=== PATIENT | male | born 1935 | race Caucasian/White ===

== ENCOUNTER 2023-08-14 14:32 | Inpatient (IN) | payer OTHER, SELFPAY ==
[2023-08-14] VITALS (8 sets, daily range): BP systolic 121–149; BP diastolic 51–66; BMI 38.9; BMI 37.4
--- NOTE | 2023-08-14 11:44 | ED.GENMED ---
History of Present Illness
General
Chief Complaint: Weakness
Source: patient
Exam Limitations: none
Time Seen by Provider: 08/14/23 11:40
History of Present Illness
History of Present Illness:
See MDM
Past History
Past History
ED Past Medical History: HTN and Other (Lymphadema)
ED Past Surgical History: None
Social History
Tobacco: Non-smoker
Alcohol: None
Phy Exam
Physical Exam
Physical Exam:
See MDM
Course
Orders/Labs/Results
Orders:
Orders
08/14/23 11:44
0.9% Sodium Chloride 1000 ml [Nss] 1,000 ml IV BOLUS
08/14/23 12:01
Complete Blood Count/With Diff Urgent
Comprehensive Metabolic Panel Urgent
08/14/23 13:23
Electrocardiogram (*1) Urgent
Reason for Study: QTc Monitoring
EKG- Treatment ONCE
Abnormal Lab Results
08/14/23
12:01
RBC 3.83 L 10^6/uL
(4.70-6.10)
Hgb 11.5 L g/dL
(13.0-18.0)
Hct 36.2 L %
(39.0-52.0)
MCV 94.5 H fL
(80.0-94.0)
MCHC 31.8 L g/dL
(33.0-37.0)
MPV 10.5 H fL
(7.4-10.4)
Absolute Monos (auto) 0.8 H 10^3/uL
(0.1-0.6)
Monocytes % 11.0 H %
(1.7-9.3)
Sodium 132 L mmol/L
(135-145)
Potassium 5.3 H mmol/L
(3.5-5.1)
Carbon Dioxide 17 L mmol/L
(22-30)
BUN 108 H* mg/dl
(9-20)
Creatinine 5.4 H* mg/dL
(0.7-1.3)
Glucose 104 H mg/dl
(70-99)
Total Protein 6.2 L g/dl
(6.3-8.2)
08/14/23 12:01
08/14/23 12:01
Vital Signs
Initial and Last Documented VS:
Initial Vital Signs
Temp Pulse Resp BP Pulse Ox
97.7 F 74 18 132/59 94
08/14/23 11:43 08/14/23 11:43 08/14/23 11:43 08/14/23 11:43 08/14/23 11:43
Last Documented Vital Signs
Temp Pulse Resp BP Pulse Ox
97.7 F 74 18 132/59 94
08/14/23 11:43 08/14/23 11:43 08/14/23 11:43 08/14/23 11:43 08/14/23 11:43
MDM/Problems Addressed
Differential Diagnosis Includes:
HPI and MDM Narrative:
87-year-old male presenting with generalized weakness. Patient has been feeling weak over the past several weeks. He went to an outside hospital and had a negative workup. He was ultimately sent to rehab. Patient left rehab earlier today and was
walking to his car and his legs gave out again. Patient now unsure if he can go home. On exam, he has dry mucous membranes. He states he is getting over a GI bug that he got in the facility.
Will give IV fluids and obtain basic blood work. No trauma noted on exam. He is generally weak with no focality. If blood work negative, will have physical therapy evaluate
Physical exam
General: weak and tried
HEENT: protecting airway. Dry mucous membranes
Neck: supple
CV: No evidence of cyanosis
Resp: No accessory muscle use
Abd: Non-distended
Extremities: Bilateral leg lymphedema. Muscle strength appears to be intact to both legs and arms
Neuro: alert
Psych: Normal affect
Skin: Intact
Problems Addressed including Acute and Chronic Conditions affecting care:
1. Generalized weakness
Acuity: acute
Prognosis: stable
Details: Will obtain basic blood work
2. Hypovolemia
Acuity: acute
Prognosis: stable
Details: Will give IV fluids
Updates
Patient found to have an elevated BUN and creatinine. At this point, daughter is at bedside indicating his history of chronic kidney disease but does not believe the numbers are usually this high. Will admit based on his generalized weakness and
acute kidney injury. Patient states he had not made any urine the day prior and is started to make urine out after fluids
Differential Diagnosis (but not limited to): Dehydration, UTI
Testing considered: Urinalysis
Drug therapy (if applicable): OTC meds, please see d/c instruction regarding Rx drugs
Amount and/or Complexity of Data Reviewed
Clinical info obtained from: Patient
External data reviewed: N/A
Labs I independently reviewed (but not limited to): Elevated creatinine and BUN, mildly elevated potassium
Radiology: N/A
Pulse Ox: not hypoxic
EKG independently reviewed: N/A
House Wrecker: N/A
Critical Care: N/A
Risk of Complication:
Social Determinants of health: Good social support
Discussed with other providers: Hospitalist
Escalation of Care includes Admit/Obs: Given his dehydration and an elevated will continue IV fluids and admit
Occasional wrong word or 'sound a like' substitutions may have occurred due to the inherent limitations of voice recognition software. Read the chart carefully and recognize, using context, where substitutions have occurred.
*Critical Care Note
Total Time (30-74mins, 75-104mins- exclusive of procedures): Not Applicable
ED Attending Note
-
Portions of this chart may have been created with voice recognition software.� Occasional wrong word or��sound alike� substitutions may have occurred due to the inherent limitations of voice recognition software.
Discharge Plan
Departure
Patient Disposition: Admit
Date of Disposition: 08/14/23
Time of Disposition: 13:31
Presentation/result/management discussed w/ accepting MD/DO: Hospitalist
Discharge Problem:
Acute dehydration, ORLANDO (acute kidney injury), Acute hyperkalemia
Interventions
Interventions:
*Risk Screen - Suicide Last Done: 08/14/23 11:43
*General Assessment Last Done: 08/14/23 11:43
*Neglect/Abuse Screening Last Done: 08/14/23 11:43
*ED COVID-19 Vaccine History Last Done: 08/14/23 11:43
ED- Cardiac Assessment Last Done: 08/14/23 12:17
ED- Neurological Assessment Last Done: 08/14/23 12:17
ED- Pulmonary Assessment Last Done: 08/14/23 12:17
Discharge Date and Time
Print Language: SURINAMESE
[2023-08-14] MEDS: NSS 1000 IV (12:02)
[2023-08-14 12:16] LABS: % Basophils 0.3 % (0-2); % Eosinophils 2.8 % (0-6); % Immature Granulocytes 0.4 % (0-0.5); % Neutrophils 57.5 % (42.2-75.2); Absolute Eosinophils 0.2 10^3/uL (0-0.7); Absolute Lymphocytes 2.1 10^3/uL (1.2-3.4); Absolute Monocytes 0.8 10^3/uL (0.1-0.6); Absolute Neutrophils 4.3 10^3/uL (1.4-6.5); Hematocrit 36.2 % (39.0-52.0); Hemoglobin 11.5 g/dL (13.0-18.0); Mean Corp Hgb Conc. 31.8 g/dL (33.0-37.0); Mean Corpuscular Volume 94.5 fL (80.0-94.0); Mean Platelet Volume 10.5 fL (7.4-10.4); Nucleated Red Blood Cells % 0 % (-); Platelet Count 216 10^3/uL (130-400); Red Blood Cell Count 3.83 10^6/uL (4.70-6.10); Red Cell Dist. Width 14.5 % (11.5-14.5); White Blood Cell Count 7.4 10^3/uL (4.8-10.8)
[2023-08-14 12:39] LABS: ALT (SGPT) 14 U/L (0-50); AST (SGOT) 17 U/L (17-59); Albumin 3.6 g/dl (3.5-5.0); Alkaline Phosphatase 68 U/L (38-126); Blood Urea Nitrogen 108 mg/dl (9-20); Calcium 8.6 mg/dl (8.4-10.2); Carbon Dioxide 17 mmol/L (22-30); Chloride 101 mmol/L (98-107); Estimated Creatinine Clearance 14 ml/min; Glucose 104 mg/dl (70-99); Potassium 5.3 mmol/L (3.5-5.1); Sodium 132 mmol/L (135-145); Total Bilirubin 0.5 mg/dl (0.2-1.3); Total Protein 6.2 g/dl (6.3-8.2); eGFR 9.69
--- NOTE | 2023-08-14 14:25 | HPS.HSE ---
Addendum entered and electronically signed by Mohit Johnson MD 08/14/23 15:33:
louise/ohs
-CPAP - daughter jayy bring in machine
Original Note:
Family Physician
-
Family Physician: Amada Chaidez
Chief Complaint
-
Weakness
History of Present Illness
87-year-old male with past medical history hypertension, bph, ?seizures, CKD3 as per daughter, chronic lymphedema now presenting for weakness. Patient has recently been in rehab for weakness, with ankle close a workup at outside hospital. Patient
had recent diarrhea which is improved. Patient was discharged from rehab earlier today, unable to walk to his car and had fell. Feels weakness in his legs. No head strike or trauma. Vitals remarkable for elevated heart rate at 93, normotensive,
RR 19, pulse 67, 92% on room air. No other further data for my records, lab noted to have hyponatremia, sodium 132, potassium 5.3, bicarb 17, BUN 108, creatinine 5.4.
Medical History
Past Medical History
Past Medical History: Reports HTN
Past Surgical History: Reports None
Social History
Alcohol: None
Drug: None
Family History
Family History: Not pertinent
Allergies / Home Medications
Allergies reflects when Allergies were last updated in [employer].
Home Medications with original date entered in [employer]
Allergy/Medication List:
Allergies
Allergy/AdvReac Type Severity Reaction Status Date / Time
No Known Allergies Allergy Verified 08/14/23 11:41
Home Medications
acetaminophen 325 mg tablet (Tylenol) 650 mg PO Q4HPRN PRN mild pain 08/14/23
carvedilol 6.25 mg tablet (Coreg) 6.25 mg PO BID 08/14/23
dorzolamide 22.3 mg-timolol 6.8 mg/mL eye drops 1 drp LEFT EYE BID 08/14/23
escitalopram oxalate 10 mg tablet (Lexapro) 10 mg PO DAILY 08/14/23
eszopiclone 2 mg tablet (Lunesta) 2 mg PO HS 08/14/23
finasteride 5 mg tablet 5 mg PO DAILY 08/14/23
levetiracetam 250 mg tablet (Keppra) 250 mg PO BID 08/14/23
lisinopril 20 mg-hydrochlorothiazide 12.5 mg tablet 1 tab PO DAILY 08/14/23
pantoprazole 40 mg tablet,delayed release (Protonix) 40 mg PO DAILY 08/14/23
terazosin 10 mg capsule 10 mg PO DAILY 08/14/23
Review of Systems
-
History Source: Patient
A 12 point ROS was completed and negative except as noted: Yes
Physical Exam
Vital Signs
Vital Signs
Temp Pulse Resp BP Pulse Ox
97.7 F 67 19 144/55 93
08/14/23 11:43 08/14/23 13:30 08/14/23 13:30 08/14/23 13:00 08/14/23 13:30
Physical Exam
General: Well Developed, Well Nourished and No Apparent Distress
HEENT: NormoCephalic
Respiratory: Clear
Cardiac: S1/S2
GI: Soft and Non Tender
Musculoskeletal: No Clubbing
Skin: Warm and Other (Lower extremity edema, history of chronic bilateral leg lymphedema)
Neuro: Awake, Alert, Oriented and AO x 3
Hematologic/Lymphatic: Other (History of bilateral leg lymphedema)
Psych: Calm
Laboratory Results
-
08/14/23 12:01
08/14/23 12:01
Laboratory Results
Total Bilirubin 0.5 mg/dl (0.2-1.3) 08/14/23 12:01
AST 17 U/L (17-59) 08/14/23 12:01
ALT 14 U/L (0-50) 08/14/23 12:01
Alkaline Phosphatase 68 U/L (38-126) 08/14/23 12:01
Impression/Plan
-
IMPRESSION:
87-year-old male with past medical history hypertension, lymphedema now presenting for weakness. Found to have ORLANDO after diarrheal illness.
PLAN:
#ORLANDO on ?CKD3
#Anion gap metabolic acidosis
� Suspect due to volume loss in setting of recent diarrheal illness v obstructive uropathy in setting of bph and lack of urination
� Continue IV fluids�monitor respiratory status
- continue to monitor BMP
� Follow-up UA to rule out UTI
� Echo
-Renal and Bladder US; PVR
-Anticipate placing yang
�Hold nephrotoxic agents
#Hyperkalemia
� Secondary to ORLANDO
� Continue to monitor with resuscitation
� BMP this evening
#Hyponatremia
� Most likely secondary to volume loss in setting of diarrhea
� Continue to monitor with IV resuscitation
#Hypertension
� Continue Coreg
� Hold on lisinopril/hydrochlorothiazide
#BPH
� Continue medications
#Hx of Seizures
� Continue Keppra
#DVT ppx
-HSQ
--- NOTE | 2023-08-14 17:04 | CM ---
[facility] per JUNI Pierceapplication development liaison.
[2023-08-14] MEDS: HEPARIN 5000 UNITS SC ×2 (17:21→23:39)
[2023-08-14] MEDS: LR 1000 IV ×2 (17:22→21:09)
[2023-08-14 19:16] LABS: Blood Urea Nitrogen 104 mg/dl (9-20); Calcium 8.5 mg/dl (8.4-10.2); Carbon Dioxide 16 mmol/L (22-30); Chloride 102 mmol/L (98-107); Estimated Creatinine Clearance 15 ml/min; Glucose 100 mg/dl (70-99); Potassium 4.9 mmol/L (3.5-5.1); Sodium 134 mmol/L (135-145); eGFR 10.62
[2023-08-14] MEDS: TRUSOPT 2% OPHTHALMIC SOLUTION 1 DROP LEFT EYE (22:02)
[2023-08-14] MEDS: COREG 6.25 MG PO (22:06)
[2023-08-14] MEDS: KEPPRA 250 MG PO (22:07)
[2023-08-15] VITALS (9 sets, daily range): BP systolic 115–162; BP diastolic 55–79; PULSE 77–102; O2SAT 83–94
[2023-08-15 06:53] LABS: ALT (SGPT) 13 U/L (0-50); AST (SGOT) 16 U/L (17-59); Albumin 3.3 g/dl (3.5-5.0); Alkaline Phosphatase 67 U/L (38-126); Blood Urea Nitrogen 98 mg/dl (9-20); Calcium 8.6 mg/dl (8.4-10.2); Carbon Dioxide 17 mmol/L (22-30); Chloride 105 mmol/L (98-107); Estimated Creatinine Clearance 19 ml/min; Glucose 92 mg/dl (70-99); Magnesium 2.2 mg/dl (1.6-2.3); Potassium 4.8 mmol/L (3.5-5.1); Sodium 137 mmol/L (135-145); Total Bilirubin 0.5 mg/dl (0.2-1.3); Total Protein 5.9 g/dl (6.3-8.2); eGFR 13.89
[2023-08-15 06:55] LABS: Hematocrit 33.5 % (39.0-52.0); Hemoglobin 10.9 g/dL (13.0-18.0); Mean Corp Hgb Conc. 32.5 g/dL (33.0-37.0); Mean Corpuscular Hgb 29.5 pg (27.0-31.0); Mean Corpuscular Volume 90.5 fL (80.0-94.0); Mean Platelet Volume 10.2 fL (7.4-10.4); Platelet Count 210 10^3/uL (130-400); Red Cell Dist. Width 14.2 % (11.5-14.5); White Blood Cell Count 7.2 10^3/uL (4.8-10.8)
[2023-08-15 07:41] LABS: Urine Albumin Negative (Neg - Trace); Urine Bilirubin Negative (Negative); Urine Character Clear (Clear); Urine Color Yellow; Urine Glucose Negative (Negative); Urine Ketone Negative (Negative); Urine Leukocyte 1+ (Negative); Urine Nitrite Negative (Negative); Urine Occult Blood 4+ (Negative); Urine Specific Gravity 1.015 (<1.030); Urine Urobilinogen Negative (Neg - 1+)
[2023-08-15 08:29] LABS: Urine Bacteria Few (Negative); Urine Red Blood Cell 16-20 /HPF (0-2); Urine Urothelial Cell 0-2 /LPF (FEW)
[2023-08-15] MEDS: PROSCAR 5 MG PO (09:31)
[2023-08-15] MEDS: COREG 6.25 MG PO ×2 (09:31→21:03)
[2023-08-15] MEDS: HYTRIN 10 MG PO (09:31)
[2023-08-15] MEDS: PROTONIX 40 MG PO (09:31)
[2023-08-15] MEDS: HEPARIN 5000 UNITS SC ×3 (09:32→23:04)
[2023-08-15] MEDS: LEXAPRO 10 MG PO (09:32)
[2023-08-15] MEDS: KEPPRA 250 MG PO ×2 (09:32→21:04)
[2023-08-15] MEDS: TRUSOPT 2% OPHTHALMIC SOLUTION 1 DROP LEFT EYE ×2 (09:33→21:03)
[2023-08-15] MEDS: LR 1000 IV (09:44)
--- NOTE | 2023-08-15 11:57 | W.PN.HOSP.TC ---
Addendum entered and electronically signed by Mohit Johnson MD 08/15/23 14:54:
Hypoxic event with fluids. Stop fluids. Echo recently done, EF 71% with normal wall thickness and no wall motion abnormalities. IVC is dilated and does not collapse. I suspect this may be secondary to fluids versus aspiration. Possibly
aspirated, speech eval. Empiric antibiotics for now. Possibility of PE and difficult to assess with ORLANDO. Will order lower extremity Dopplers. If positive, start anticoagulation. Otherwise high prob fluid overload/Aspiration. Will obtain trops
Original Note:
Today's Communication/Plan
-
cont ivf
plan for tov tomorrow
monitor bmp
Assessment / Plan
Assessment / Plan
Physical Exam
General: Well Developed, Well Nourished and No Apparent Distress
HEENT: NormoCephalic
Respiratory: Clear
Cardiac: S1/S2
GI: Soft and Non Tender
Musculoskeletal: No Clubbing
Skin: Warm and Other (Lower extremity edema, history of chronic bilateral leg lymphedema)
Neuro: Awake, Alert, Oriented and AO x 3
Hematologic/Lymphatic: Other (History of bilateral leg lymphedema)
Psych: Calm
IMPRESSION:
87-year-old male with past medical history hypertension, lymphedema now presenting for weakness. Found to have ORLANDO after diarrheal illness.
PLAN:
#ORLANDO on ?CKD3
#Anion gap metabolic acidosis
� Suspect due to volume loss in setting of recent diarrheal illness
-No evidence of hydro/obstruction on renal us
� Continue IV fluids�monitor respiratory status
- continue to monitor BMP; Scr improving
� Follow-up UA to rule out UTI - - equivocal
� Echo
-TOV tomorrow
�Hold nephrotoxic agents
#Asymptomatic Bacteruria
#Hyperkalemia
� Secondary to ORLANDO
� Continue to monitor with resuscitation
�improving
#Hyponatremia
� Most likely secondary to volume loss in setting of diarrhea
� Continue to monitor with IV resuscitation
-improving
#Hypertension
� Continue Coreg
� Hold on lisinopril/hydrochlorothiazide
#BPH
� Continue medications
#Hx of Seizures
� Continue Keppra
#DVT ppx
-HSQ
Anticipated Discharge: 24 - 48 hours
Subjective/Interval History
-
Date of Service: August 15, 2023
sitting in chair, eating. Scr coming down
Objective Data
-
Labs:
Laboratory Results
08/15/23 08/15/23
06:23 06:24
WBC 7.2
Hgb 10.9 L
Hct 33.5 L
Plt Count 210
Sodium 137
Potassium 4.8
Chloride 105
Carbon Dioxide 17 L
BUN 98 H
Creatinine 4.0 H
Glucose 92
Calcium 8.6
Total Bilirubin 0.5
AST 16 L
ALT 13
Alkaline Phosphatase 67
Vital Signs:
Vital Signs
Temp Pulse Resp BP Pulse Ox
97.7 F 82 16 115/55 92
08/15/23 11:14 08/15/23 11:14 08/15/23 11:14 08/15/23 11:14 08/15/23 11:14
I&O
08/14/23 08/15/23 08/16/23
06:59 06:59 06:59
Intake Total 1700 / 1700
Output Total 1425 / 1425
Balance 275 / 275
Review of Systems
-
History Source: Patient
All other systems: Not reviewed unless documented
Data Reviewed
-
Ultrasound: Image personally visualized and interpreted and Report Reviewed by me
Labs: Labs Reviewed by me
--- NOTE | 2023-08-15 12:46 | CM ---
Addendum entered by EVER Berrios 08/15/23 15:20:
Sent referrals to: [facility], [facility], [facility], [facility], [facility], [facility], [facility], [facility], [facility], [facility], [facility], and [facility]. Will await determinations.
Original Note:
Reviewed chart, met with patient's daughter who was at bedside to obtain information for assessment. Patient was at [facility] and fell on his way home after he was discharged. He was supposed to return home with [facility] however came to acute
care s/p fall. Patient lives with his daughter on the first floor of a two story home with one step to enter.
Patient has a w/c. He uses a walker however since the FL he has been weak and unable to ambulate long distances.
Patient needs assistance with bathing, dressing, and all other ADLs. Patient's daughter stated that he was not like this until after the hospitalization and subsequent rehab stay. She does all the data analyst, cooks, cleans and does laundry and
admitted that assisting him with ADLs is very difficult.
Patient's PCP is Amada Chaidez MD and he uses [facility] for all of his medications.
Patient's daughter realizes that the indication on behalf of PT is for patient to go back to rehab. She is agreeable as long as it's not [facility]. Patient and his daughter live in [place] and were agreeable to referrals being sent to
facilities either in [place] or in [place]. Will make referrals to local facilities.
Plan: Case management will continue to follow and assist with discharge planning. SNF, will make referrals.
[2023-08-15] MEDS: DUONEB 3 ML INH ×2 (14:18→19:30)
[2023-08-15] MEDS: ZITHROMAX 500 MG PO (15:14)
[2023-08-15] MEDS: ROCEPHIN 1000 MG IV (15:14)
[2023-08-15 15:15] LABS: Hematocrit 36.2 % (39.0-52.0); Hemoglobin 11.6 g/dL (13.0-18.0); Mean Corpuscular Hgb 29.5 pg (27.0-31.0); Mean Corpuscular Volume 92.1 fL (80.0-94.0); Mean Platelet Volume 10.1 fL (7.4-10.4); Platelet Count 205 10^3/uL (130-400); Red Blood Cell Count 3.93 10^6/uL (4.70-6.10); Red Cell Dist. Width 14.1 % (11.5-14.5); White Blood Cell Count 6.8 10^3/uL (4.8-10.8)
[2023-08-15] MEDS: STERILE WATER FOR INJECTION 10 ML IV (15:15)
[2023-08-15 15:21] LABS: Troponin I 0.021 ng/ml
[2023-08-15 15:43] LABS: Procalcitonin 0.08 ng/ml (0.0-0.25)
--- NOTE | 2023-08-15 19:40 | PTCARENOTE ---
late entry-pt was working with OT today at 14:10, OT reported to this RN that pt de-satted to 83%. Pt reports he can't get a deep breath. Placed on 4L O2 NC, improved sat to 88, bumped up to 6L, now 90. Duoneb ordered by provider, order to stop
fluids. Pt lung assessment: coarse, wet, crackles. Notified provider who came to floor to assess patient. Portable chest X-ray shows probable pneumonitis. Pt had violently vomited at his group home and likely aspirated. Pt placed on BiPap by
respiratory, satting 96%. At 1730, respiratory switched pt back over to O2 NC 5 L and pt remained at 97%. At change of shift, pt was weaned down to 3L and satting at 95%. Provider aware that pt is much improved and breathing/feeling better. All
information given to oncoming night nurse.
[2023-08-15 22:01] LABS: Troponin I 0.013 ng/ml
[2023-08-16] VITALS (8 sets, daily range): BP systolic 124–171; BP diastolic 67–80; PULSE 64–73; O2SAT 95; BMI 37.2
[2023-08-16 02:06] LABS: Hematocrit 33.4 % (39.0-52.0); Hemoglobin 10.9 g/dL (13.0-18.0); Mean Corp Hgb Conc. 32.6 g/dL (33.0-37.0); Mean Corpuscular Hgb 29.5 pg (27.0-31.0); Mean Corpuscular Volume 90.5 fL (80.0-94.0); Mean Platelet Volume 10.4 fL (7.4-10.4); Platelet Count 165 10^3/uL (130-400); Red Blood Cell Count 3.69 10^6/uL (4.70-6.10); Red Cell Dist. Width 14.2 % (11.5-14.5); White Blood Cell Count 7.4 10^3/uL (4.8-10.8)
[2023-08-16 02:23] LABS: ALT (SGPT) 13 U/L (0-50); AST (SGOT) 19 U/L (17-59); Albumin 3.2 g/dl (3.5-5.0); Alkaline Phosphatase 64 U/L (38-126); Blood Urea Nitrogen 92 mg/dl (9-20); Calcium 8.8 mg/dl (8.4-10.2); Carbon Dioxide 17 mmol/L (22-30); Chloride 109 mmol/L (98-107); Estimated Creatinine Clearance 26 ml/min; Glucose 91 mg/dl (70-99); Potassium 4.7 mmol/L (3.5-5.1); Sodium 138 mmol/L (135-145); Total Bilirubin 0.5 mg/dl (0.2-1.3); Total Protein 5.8 g/dl (6.3-8.2); eGFR 20.43
[2023-08-16 02:31] LABS: Troponin I 0.017 ng/ml
[2023-08-16] MEDS: DUONEB 3 ML INH ×4 (07:14→19:45)
[2023-08-16] MEDS: COREG 6.25 MG PO ×2 (08:02→21:52)
[2023-08-16] MEDS: LEXAPRO 10 MG PO (08:02)
[2023-08-16] MEDS: PROTONIX 40 MG PO (08:02)
[2023-08-16] MEDS: PROSCAR 5 MG PO (08:02)
[2023-08-16] MEDS: HYTRIN 10 MG PO (08:02)
[2023-08-16] MEDS: KEPPRA 250 MG PO ×2 (08:02→21:53)
[2023-08-16] MEDS: TRUSOPT 2% OPHTHALMIC SOLUTION 1 DROP LEFT EYE ×2 (08:03→21:53)
[2023-08-16] MEDS: HEPARIN 5000 UNITS SC ×2 (08:03→15:38)
[2023-08-16] MEDS: DESENEX/MITRAZOL/ZEASORB 1 APPLIC TOPICAL ×2 (08:04→21:53)
--- NOTE | 2023-08-16 10:35 | CM ---
Addendum entered by Amada Sands, OSTEOPATHIC MEDICINE TEACHER 08/16/23 16:04:
Received call from Jordon in admissions at [facility] who stated that he does have a bed for patient. Will review options with patient. She will need an auth.
Addendum entered by Amada Sands [facility] 08/16/23 15:39:
Sent more referrals: [facility] and [facility] will await responses.
Original Note:
Received responses back from Lyssa at who stated that she can accept patient. Received notification through [facility] from [facility] and [facility] stating that they may be willing to accept pending the dates that patient was recently at
[facility] and also received message from admissions at [facility]. Again message stated that facility may be willing to accept pending length of SNF stay at [place] [facility]
Placed a call to [facility] and spoke with Roberto in admissions who stated that patient was at his facility from 08/01-08/13.
Placed a call to [facility] and [facility] Left message for admissions to return call.
Will review potential accepting facilities with patient/family.
Plan: Case management will continue to follow and assist with discharge planning. SNF when stable.
--- NOTE | 2023-08-16 13:53 | W.PN.HOSP.TC ---
Today's Communication/Plan
-
Continue monitor serum creatinine
Wean down O2 as tolerated
VSE
Assessment / Plan
Assessment / Plan
Physical Exam
General: Well Developed, Well Nourished and No Apparent Distress
HEENT: NormoCephalic
Respiratory: Clear
Cardiac: S1/S2
GI: Soft and Non Tender
Musculoskeletal: No Clubbing
Skin: Warm and Other (Lower extremity edema, history of chronic bilateral leg lymphedema)
Neuro: Awake, Alert, Oriented and AO x 3
Hematologic/Lymphatic: Other (History of bilateral leg lymphedema)
Psych: Calm
IMPRESSION:
87-year-old male with past medical history hypertension, lymphedema now presenting for weakness. Found to have ORLANDO after diarrheal illness.
PLAN:
#ORLANDO on ?CKD3
#Anion gap metabolic acidosis
� Suspect due to volume loss in setting of recent diarrheal illness
-No evidence of hydro/obstruction on renal us
� Status post IV fluids, stopped due to acute hypoxic respite failure, volume overload
- continue to monitor BMP; Scr improving
� Follow-up UA to rule out UTI - - equivocal
� Echo�EF 71%, no other acute findings, normal thickness
-TOV today
�Hold nephrotoxic agents
#Asymptomatic Bacteruria
# Acute hypoxic respiratory failure
� I suspect acute pulmonary edema status post fluids
� Hold fluids, improved today with positive pressure support
� Echo EF 71%, normal atrial thickness
�No evidence of pneumonia at this time, discontinue antibiotics
� Speech eval, VSE
#Hyperkalemia
� Secondary to ORLANDO
� Continue to monitor with resuscitation
�improving
#Hyponatremia
� Most likely secondary to volume loss in setting of diarrhea
� Continue to monitor with IV resuscitation
-Resolved
#Hypertension
� Continue Coreg
� Hold on lisinopril/hydrochlorothiazide
#BPH
� Continue medications
#Hx of Seizures
� Continue Keppra
#DVT ppx
-HSQ
Total time spent on today's encounter was 50 minutes which included time spent in counseling the patient/family regarding diagnosis and treatment plan as listed above, goals of care, and symptom management. Case was discussed with nursing staff,
specialists, and care coordinators/case management. All labs and imaging personally reviewed by me. Remainder the time spent in detailed review of previous records, lab data, imaging, and other medical provider documentation.
Anticipated Discharge: 24 - 48 hours
Subjective/Interval History
-
Date of Service: August 16, 2023
Symptoms much improved
Objective Data
-
Labs:
Laboratory Results
08/16/23
02:00
WBC 7.4
Hgb 10.9 L
Hct 33.4 L
Plt Count 165
Sodium 138
Potassium 4.7
Chloride 109 H
Carbon Dioxide 17 L
BUN 92 H
Creatinine 2.9 H
Glucose 91
Calcium 8.8
Total Bilirubin 0.5
AST 19
ALT 13
Alkaline Phosphatase 64
Vital Signs:
Vital Signs
Temp Pulse Resp BP Pulse Ox
98.0 F 74 22 167/80 95
08/16/23 11:00 08/16/23 11:00 08/16/23 11:00 08/16/23 11:00 08/16/23 11:00
I&O
08/15/23 08/16/23 08/17/23
06:59 06:59 06:59
Intake Total 1700 / 1700 50 / 50
Output Total 1425 / 1425 2600 / 2600
Balance 275 / 275 -2550 / -2550
Review of Systems
-
History Source: Patient
All other systems: Not reviewed unless documented
Data Reviewed
-
Ultrasound: Image personally visualized and interpreted and Report Reviewed by me
Labs: Labs Reviewed by me
--- NOTE | 2023-08-16 15:43 | PTOTSP ---
SPEECH THERAPY SWALLOW EVALUATION:
Patient presents with oropharyngeal swallow function grossly WFL at this time; However, patient with CXR concerning for aspiration following hypoxic event yesterday. Patient is at risk for aspiration given precipitating dysphagia risk factors
including weakness/deconditioning and pulmonary status. Unable to rule out dysphagia/aspiration at bedside. Differential etiologies of possible aspiration include during reported vomiting episode 5-6 days ago vs. related to current
deconditioning/weakness vs. post-prandial aspiration secondary to GERD. Recommend Videofluoroscopic Swallowing Study to further assess patient's swallow physiology at this time. Recommend Regular texture diet, thin liquids, medications with thin
liquids until VSE. Aspiration precautions including: upright positioning, small single sips and bites, slow rate of intake. Speech therapy to follow, assess diet tolerance and modify as appropriate, provide further recommendations following VSE, and
provide continued education regarding aspiration risks/precautions. Discussed with patient, daughter, RN, and Dr. Johnson.
RECOMMEND:
1) Regular texture diet, thin liquids
2) Videofluoroscopic Swallowing Study
3) Medications whole with liquid as tolerated
4) Aspiration precautions: Upright positioning, Remain upright 30 minutes after eating/drinking, Small single sips/bites, slow rate of intake, do not eat when short of breath
5) Speech therapy to follow, assess diet tolerance and modify as appropriate, provide further recommendations following VSE, and provide continued education regarding aspiration risks/precautions
--- NOTE | 2023-08-16 16:16 | PTOTSP ---
SPEECH THERAPY VIDEOFLUOROSCOPIC SWALLOWING STUDY:
Patient presents with grossly WFL oral swallow function and mild-moderate pharyngeal dysphagia, likely acutely related to weakness/deconditioning secondary to medical complications over past several weeks. Patient with deep penetration to level of
vocal folds with thin liquid via cup (consecutive sips and single sip thin liquid wash), and trace penetration with Mildly-thick liquid via teaspoon. Patient remains at risk for aspiration with thin liquids given lack of cough in response to airway
invasion, along with respiratory/pulmonary status. Recommend Regular texture diet and Mildly-thick liquids. Diet modification is likely temporary as patient is without significant predisposing dysphagia risk factors and suspect dysphagia acutely
related to weakness/deconditioning. Medications whole in puree. Aspiration precautions including: Upright positioning; Small single sips/bites; Slow rate of intake; Do not eat/drink when short of breath; Discontinue oral diet if signs of aspiration
or worsening in respiratory or pulmonary status; Remain upright 30 minutes after eating/drinking. Recommend Aspiration Risk Hydration Protocol: Unlimited ice chips and small single sips of thin liquid water BETWEEN meals following oral care with
aspiration precautions in place. Speech therapy to follow, assess diet tolerance and modify as appropriate, monitor CXR and labs, provide education regarding aspiration risks/precautions and diet recommendations.
RECOMMEND:
1) Regular texture diet and Mildly-thick liquids
2) Medications whole in puree
3) Aspiration Risk Hydration Protocol: Unlimited ice chips and small single sips of thin liquid water BETWEEN meals following oral care with aspiration precautions in place
4) Aspiration precautions including: Upright positioning; Small single sips/bites; Slow rate of intake; Do not eat/drink when short of breath; Discontinue oral diet if signs of aspiration or worsening in respiratory or pulmonary status; Remain
upright 30 minutes after eating/drinking
5) Speech therapy to follow, assess diet tolerance and modify as appropriate, monitor CXR and labs, provide education regarding aspiration risks/precautions and diet recommendations
[2023-08-17] MEDS: HEPARIN 5000 UNITS SC ×3 (00:08→16:06)
[2023-08-17 03:08] VITALS: BP 170/71
[2023-08-17 07:30] VITALS: BP 169/86
[2023-08-17] MEDS: DUONEB 3 ML INH ×4 (07:32→19:52)
[2023-08-17] MEDS: COREG 6.25 MG PO ×2 (09:21→21:01)
[2023-08-17] MEDS: PROTONIX 40 MG PO (09:21)
[2023-08-17] MEDS: LEXAPRO 10 MG PO (09:21)
[2023-08-17] MEDS: KEPPRA 250 MG PO ×2 (09:21→21:01)
[2023-08-17] MEDS: PROSCAR 5 MG PO (09:21)
[2023-08-17] MEDS: DESENEX/MITRAZOL/ZEASORB 1 APPLIC TOPICAL ×2 (09:22→21:01)
[2023-08-17] MEDS: HYTRIN 10 MG PO (09:22)
[2023-08-17 09:23] LABS: Hematocrit 36.1 % (39.0-52.0); Mean Corp Hgb Conc. 33.2 g/dL (33.0-37.0); Mean Corpuscular Hgb 29.8 pg (27.0-31.0); Mean Corpuscular Volume 89.6 fL (80.0-94.0); Mean Platelet Volume 10.6 fL (7.4-10.4); Platelet Count 235 10^3/uL (130-400); Red Blood Cell Count 4.03 10^6/uL (4.70-6.10); Red Cell Dist. Width 14.5 % (11.5-14.5); White Blood Cell Count 8.7 10^3/uL (4.8-10.8)
[2023-08-17] MEDS: TRUSOPT 2% OPHTHALMIC SOLUTION 1 DROP LEFT EYE ×2 (09:23→21:01)
[2023-08-17 09:38] LABS: ALT (SGPT) 15 U/L (0-50); AST (SGOT) 21 U/L (17-59); Albumin 3.7 g/dl (3.5-5.0); Alkaline Phosphatase 70 U/L (38-126); Blood Urea Nitrogen 75 mg/dl (9-20); Calcium 9.4 mg/dl (8.4-10.2); Carbon Dioxide 24 mmol/L (22-30); Chloride 107 mmol/L (98-107); Estimated Creatinine Clearance 33 ml/min; Glucose 96 mg/dl (70-99); Potassium 4.8 mmol/L (3.5-5.1); Sodium 141 mmol/L (135-145); Total Bilirubin 0.6 mg/dl (0.2-1.3); Total Protein 6.5 g/dl (6.3-8.2); eGFR 26.98
[2023-08-17 11:50] VITALS: BP 177/80
--- NOTE | 2023-08-17 13:40 | W.PN.HOSP.TC ---
Today's Communication/Plan
-
weaned off o2
start amlodipine
monitor Scr
medically clear for dc - CM aware
Assessment / Plan
Assessment / Plan
Physical Exam
General: Well Developed, Well Nourished and No Apparent Distress
HEENT: NormoCephalic
Respiratory: Clear
Cardiac: S1/S2
GI: Soft and Non Tender
Musculoskeletal: No Clubbing
Skin: Warm and Other (Lower extremity edema, history of chronic bilateral leg lymphedema)
Neuro: Awake, Alert, Oriented and AO x 3
Hematologic/Lymphatic: Other (History of bilateral leg lymphedema)
Psych: Calm
IMPRESSION:
87-year-old male with past medical history hypertension, lymphedema now presenting for weakness. Found to have OR[place]O after diarrheal illness.
PLAN:
#OR[place]O on ?CKD3
#Anion gap metabolic acidosis, resolved
� Suspect due to volume loss in setting of recent diarrheal illness
-No evidence of hydro/obstruction on renal us
� Status post IV fluids, stopped due to acute hypoxic respite failure, volume overload
- continue to monitor BMP; Scr improving
� Follow-up UA to rule out UTI - - equivocal
� Echo�EF 71%, no other acute findings, normal thickness
-TOV today
�Hold nephrotoxic agents
#Asymptomatic Bacteruria
# Acute hypoxic respiratory failure
� I suspect acute pulmonary edema status post fluids
� Hold fluids, improved with positive pressure support
� Echo EF 71%, normal atrial thickness
�No evidence of pneumonia at this time, discontinue antibiotics
� Speech eval, VSE - no evidence of aspiration o on foods but does need nectar thick fluids
-resolved today, cont CPAP and titration as needed outpatient
#Hyperkalemia
� Secondary to [place]
� Continue to monitor with resuscitation
�improving
#Hyponatremia
� Most likely secondary to volume loss in setting of diarrhea
� Continue to monitor with IV resuscitation
-Resolved
#Hypertension
� Continue Coreg
� Hold on lisinopril/hydrochlorothiazide
-start amlodipine
#BPH
� Continue medications
#Hx of Seizures
� Continue Keppra
#DVT ppx
-HSQ
Anticipated Discharge: 24 - 48 hours
Subjective/Interval History
-
Date of Service: August 17, 2023
feels much better, off o2
Objective Data
-
Labs:
Laboratory Results
08/17/23
08:31
WBC 8.7
Hgb 12.0 L
Hct 36.1 L
Plt Count 235 D
Sodium 141
Potassium 4.8
Chloride 107
Carbon Dioxide 24
BUN 75 H
Creatinine 2.3 H
Glucose 96
Calcium 9.4
Total Bilirubin 0.6
AST 21
ALT 15
Alkaline Phosphatase 70
Vital Signs:
Vital Signs
Temp Pulse Resp BP Pulse Ox
98.0 F 71 20 177/80 95
08/17/23 11:50 08/17/23 11:50 08/17/23 11:50 08/17/23 11:50 08/17/23 11:50
I&O
08/16/23 08/17/23 08/18/23
06:59 06:59 06:59
Intake Total 50 / 50 1860 / 1860
Output Total 2600 / 2600 2600 / 2600
Balance -2550 / -2550 -740 / -740
Review of Systems
-
History Source: Patient
All other systems: Not reviewed unless documented
Data Reviewed
-
Ultrasound: Image personally visualized and interpreted and Report Reviewed by me
Labs: Labs Reviewed by me
[2023-08-17] MEDS: NORVASC 5 MG PO ×2 (14:24→16:51)
[2023-08-17 18:18] VITALS: BP 151/59
[2023-08-17 19:22] VITALS: BP 152/66
[2023-08-17 23:40] VITALS: BP 153/82
[2023-08-18] VITALS (7 sets, daily range): BP systolic 110–176; BP diastolic 69–88
[2023-08-18] MEDS: HEPARIN 5000 UNITS SC ×4 (01:03→23:50)
[2023-08-18] MEDS: DUONEB 3 ML INH ×4 (07:18→20:19)
[2023-08-18 07:27] LABS: Hematocrit 38.1 % (39.0-52.0); Hemoglobin 12.3 g/dL (13.0-18.0); Mean Corp Hgb Conc. 32.3 g/dL (33.0-37.0); Mean Corpuscular Hgb 29.3 pg (27.0-31.0); Mean Corpuscular Volume 90.7 fL (80.0-94.0); Mean Platelet Volume 10.2 fL (7.4-10.4); Platelet Count 226 10^3/uL (130-400); Red Cell Dist. Width 14.4 % (11.5-14.5); White Blood Cell Count 10.1 10^3/uL (4.8-10.8)
[2023-08-18 07:52] LABS: ALT (SGPT) 18 U/L (0-50); AST (SGOT) 22 U/L (17-59); Albumin 3.7 g/dl (3.5-5.0); Alkaline Phosphatase 74 U/L (38-126); Blood Urea Nitrogen 59 mg/dl (9-20); Calcium 9.4 mg/dl (8.4-10.2); Carbon Dioxide 22 mmol/L (22-30); Chloride 112 mmol/L (98-107); Estimated Creatinine Clearance 36 ml/min; Glucose 105 mg/dl (70-99); Potassium 4.5 mmol/L (3.5-5.1); Sodium 141 mmol/L (135-145); Total Bilirubin 0.6 mg/dl (0.2-1.3); Total Protein 6.4 g/dl (6.3-8.2); eGFR 30.09
[2023-08-18] MEDS: HYTRIN 10 MG PO (08:21)
[2023-08-18] MEDS: PROTONIX 40 MG PO (08:21)
[2023-08-18] MEDS: LEXAPRO 10 MG PO (08:22)
[2023-08-18] MEDS: KEPPRA 250 MG PO ×2 (08:22→20:04)
[2023-08-18] MEDS: COREG 6.25 MG PO ×2 (08:22→20:04)
[2023-08-18] MEDS: PROSCAR 5 MG PO (08:22)
[2023-08-18] MEDS: DESENEX/MITRAZOL/ZEASORB 1 APPLIC TOPICAL ×2 (08:22→20:04)
[2023-08-18] MEDS: NORVASC 5 MG PO ×2 (08:22→09:58)
[2023-08-18] MEDS: TRUSOPT 2% OPHTHALMIC SOLUTION 1 DROP LEFT EYE ×2 (08:23→20:04)
--- NOTE | 2023-08-18 12:30 | W.PN.HOSP.TC ---
Today's Communication/Plan
-
Monitor serum creatinine
Continue nocturnal NIV
Increase amlodipine to 10 mg
Assessment / Plan
Assessment / Plan
Physical Exam
General: Well Developed, Well Nourished and No Apparent Distress
HEENT: NormoCephalic
Respiratory: Clear
Cardiac: S1/S2
GI: Soft and Non Tender
Musculoskeletal: No Clubbing
Skin: Warm and Other (Lower extremity edema, history of chronic bilateral leg lymphedema)
Neuro: Awake, Alert, Oriented and AO x 3
Hematologic/Lymphatic: Other (History of bilateral leg lymphedema)
Psych: Calm
IMPRESSION:
87-year-old male with past medical history hypertension, lymphedema now presenting for weakness. Found to have OR[place]O after diarrheal illness.
PLAN:
#OR[place]O on ?CKD3
#Anion gap metabolic acidosis, resolved
� Suspect due to volume loss in setting of recent diarrheal illness
-No evidence of hydro/obstruction on renal us
� Status post IV fluids, stopped due to acute hypoxic respite failure, volume overload
- continue to monitor BMP; Scr improving
� Follow-up UA to rule out UTI - - equivocal
� Echo�EF 71%, no other acute findings, normal thickness
-TOV today
�Hold nephrotoxic agents
#Asymptomatic Bacteruria
# Acute hypoxic respiratory failure, resolved
� I suspect acute pulmonary edema status post fluids
� Hold fluids, improved with positive pressure support
� Echo EF 71%, normal atrial thickness
�No evidence of pneumonia at this time, discontinue antibiotics
� Speech eval, VSE - no evidence of aspiration o on foods but does need nectar thick fluids
-resolved today, cont CPAP and titration as needed outpatient
#Hyperkalemia
� Secondary to [place]
� Continue to monitor with resuscitation
�improving
#Hyponatremia
� Most likely secondary to volume loss in setting of diarrhea
� Continue to monitor with IV resuscitation
-Resolved
#Hypertension
� Continue Coreg
� Hold on lisinopril/hydrochlorothiazide
-start amlodipine, increase to 10 mg today
#BPH
� Continue medications
#Hx of Seizures
� Continue Keppra
#DVT ppx
-HSQ
DC ready, case specialist aware, pending placement
Anticipated Discharge: 24 - 48 hours
Subjective/Interval History
-
Date of Service: August 18, 2023
No acute events overnight
Objective Data
-
Labs:
Laboratory Results
08/18/23
07:07
WBC 10.1
Hgb 12.3 L
Hct 38.1 L
Plt Count 226
Sodium 141
Potassium 4.5
Chloride 112 H
Carbon Dioxide 22
BUN 59 H
Creatinine 2.1 H
Glucose 105 H
Calcium 9.4
Total Bilirubin 0.6
AST 22
ALT 18
Alkaline Phosphatase 74
Vital Signs:
Vital Signs
Temp Pulse Resp BP Pulse Ox
97.9 F 72 16 139/69 94
08/18/23 11:15 08/18/23 11:27 08/18/23 11:27 08/18/23 11:15 08/18/23 11:27
I&O
08/17/23 08/18/23 08/19/23
06:59 06:59 06:59
Intake Total 1860 / 1860 1280 / 1280
Output Total 2600 / 2600 1475 / 1475
Balance -740 / -740 -195 / -195
Review of Systems
-
History Source: Patient
All other systems: Not reviewed unless documented
Data Reviewed
-
Ultrasound: Image personally visualized and interpreted and Report Reviewed by me
Labs: Labs Reviewed by me
[2023-08-19] VITALS (8 sets, daily range): BP systolic 126–155; BP diastolic 58–79; PULSE 72; O2SAT 93
[2023-08-19] MEDS: DUONEB 3 ML INH ×4 (07:23→19:30)
[2023-08-19 08:14] LABS: Hematocrit 37.1 % (39.0-52.0); Hemoglobin 12.4 g/dL (13.0-18.0); Mean Corp Hgb Conc. 33.4 g/dL (33.0-37.0); Mean Corpuscular Hgb 29.6 pg (27.0-31.0); Mean Corpuscular Volume 88.5 fL (80.0-94.0); Mean Platelet Volume 10.2 fL (7.4-10.4); Platelet Count 249 10^3/uL (130-400); Red Blood Cell Count 4.19 10^6/uL (4.70-6.10); Red Cell Dist. Width 14.7 % (11.5-14.5); White Blood Cell Count 10.8 10^3/uL (4.8-10.8)
[2023-08-19 08:44] LABS: ALT (SGPT) 19 U/L (0-50); AST (SGOT) 23 U/L (17-59); Albumin 3.6 g/dl (3.5-5.0); Alkaline Phosphatase 73 U/L (38-126); Blood Urea Nitrogen 49 mg/dl (9-20); Calcium 9.4 mg/dl (8.4-10.2); Carbon Dioxide 24 mmol/L (22-30); Chloride 111 mmol/L (98-107); Estimated Creatinine Clearance 38 ml/min; Glucose 107 mg/dl (70-99); Potassium 4.7 mmol/L (3.5-5.1); Sodium 140 mmol/L (135-145); Total Bilirubin 0.5 mg/dl (0.2-1.3); Total Protein 6.3 g/dl (6.3-8.2)
[2023-08-19] MEDS: HEPARIN 5000 UNITS SC ×3 (09:42→23:54)
[2023-08-19] MEDS: NORVASC 10 MG PO (09:43)
[2023-08-19] MEDS: PROSCAR 5 MG PO (09:43)
[2023-08-19] MEDS: PROTONIX 40 MG PO (09:46)
[2023-08-19] MEDS: LEXAPRO 10 MG PO (09:46)
[2023-08-19] MEDS: HYTRIN 10 MG PO (09:46)
[2023-08-19] MEDS: KEPPRA 250 MG PO ×2 (09:46→20:37)
[2023-08-19] MEDS: COREG 6.25 MG PO ×2 (09:46→20:37)
[2023-08-19] MEDS: DESENEX/MITRAZOL/ZEASORB 1 APPLIC TOPICAL ×2 (09:47→20:37)
[2023-08-19] MEDS: TRUSOPT 2% OPHTHALMIC SOLUTION 1 DROP LEFT EYE ×2 (09:47→20:38)
--- NOTE | 2023-08-19 12:31 | W.PN.HOSP.TC ---
Today's Communication/Plan
-
DC ready, rn case mgr aware
Assessment / Plan
Assessment / Plan
Physical Exam
General: Well Developed, Well Nourished and No Apparent Distress
HEENT: NormoCephalic
Respiratory: Clear
Cardiac: S1/S2
GI: Soft and Non Tender
Musculoskeletal: No Clubbing
Skin: Warm and Other (Lower extremity edema, history of chronic bilateral leg lymphedema)
Neuro: Awake, Alert, Oriented and AO x 3
Hematologic/Lymphatic: Other (History of bilateral leg lymphedema)
Psych: Calm
IMPRESSION:
87-year-old male with past medical history hypertension, lymphedema now presenting for weakness. Found to have [place]O after diarrheal illness.
PLAN:
#[place]O on ?CKD3
#Anion gap metabolic acidosis, resolved
� Suspect due to volume loss in setting of recent diarrheal illness
-No evidence of hydro/obstruction on renal us
� Status post IV fluids, stopped due to acute hypoxic respite failure, volume overload
- continue to monitor BMP; Scr improving
� Follow-up UA to rule out UTI - - equivocal
� Echo�EF 71%, no other acute findings, normal thickness
�Hold nephrotoxic agents
#Asymptomatic Bacteruria
# Acute hypoxic respiratory failure, resolved
� I suspect acute pulmonary edema status post fluids
� Hold fluids, improved with positive pressure support
� Echo EF 71%, normal atrial thickness
�No evidence of pneumonia at this time, discontinue antibiotics
� Speech eval, VSE - no evidence of aspiration of foods but does need nectar thick fluids
-resolved, cont CPAP and titration as needed outpatient
#Hyperkalemia
� Secondary to [place]
� Continue to monitor with resuscitation
�improving
#Hyponatremia
� Most likely secondary to volume loss in setting of diarrhea
� Continue to monitor with IV resuscitation
-Resolved
#Hypertension
� Continue Coreg
� Hold on lisinopril/hydrochlorothiazide due to [place]
-start amlodipine, increase to 10 mg
#BPH
� Continue medications
#Hx of Seizures
� Continue Keppra
#DVT ppx
-HSQ
DC ready, rn case mgr aware, pending placement
Anticipated Discharge: Within 24 hours
Subjective/Interval History
-
Date of Service: August 19, 2023
No acute events
Objective Data
-
Labs:
Laboratory Results
08/19/23
07:24
WBC 10.8
Hgb 12.4 L
Hct 37.1 L
Plt Count 249
Sodium 140
Potassium 4.7
Chloride 111 H
Carbon Dioxide 24
BUN 49 H
Creatinine 2.0 H
Glucose 107 H
Calcium 9.4
Total Bilirubin 0.5
AST 23
ALT 19
Alkaline Phosphatase 73
Vital Signs:
Vital Signs
Temp Pulse Resp BP Pulse Ox
98.5 F 64 16 133/64 94
08/19/23 11:00 08/19/23 11:32 08/19/23 11:32 08/19/23 11:00 08/19/23 11:32
I&O
08/18/23 08/19/23 08/20/23
06:59 06:59 06:59
Intake Total 1280 / 1280 600 / 600
Output Total 1475 / 1475 800 / 800
Balance -195 / -195 -200 / -200
Review of Systems
-
History Source: Patient
All other systems: Not reviewed unless documented
Data Reviewed
-
Ultrasound: Image personally visualized and interpreted and Report Reviewed by me
Labs: Labs Reviewed by me
--- NOTE | 2023-08-19 14:25 | CM ---
Addendum entered by Amada Sands [facility] 08/19/23 16:39:
NPIs for auth:
De. Francisco Marshall [id number]
facility [phone]
Addendum entered by Amada Sands [facility] 08/19/23 15:56:
Received return call from [facility] in admissions at [facility] who confirmed bed availability upon hopeful auth from [employer]. Will start authorization.
Addendum entered by Amada Sands [facility] 08/19/23 15:49:
Placed a call to [facility] at [facility] to f/u on referral sent. She stated that she would review and call right back.
Original Note:
Reviewed chart, met with patient, his tieing machine operator and daughter who was at bedside. Patient hesitant to go back to Rehab after what happened at his previous facility. Patient attributes his declining health care to his last SNF. Updated patient about
facilities that will take patient, however he declined accepting facilities that are available thus far. Patient stated that he would consider [facility] and [facility]. Will call those facilities to f/u regarding availability.
Plan: Case management will continue to follow and assist with discharge planning. Patient hesitant to return to rehab. Will refer to the two that he selected
[2023-08-20] VITALS (7 sets, daily range): BP systolic 131–160; BP diastolic 22–74; PULSE 71; O2SAT 93
[2023-08-20 07:06] LABS: Hematocrit 36.6 % (39.0-52.0); Hemoglobin 11.8 g/dL (13.0-18.0); Mean Corp Hgb Conc. 32.2 g/dL (33.0-37.0); Mean Corpuscular Hgb 29.7 pg (27.0-31.0); Mean Corpuscular Volume 92.2 fL (80.0-94.0); Mean Platelet Volume 10.2 fL (7.4-10.4); Platelet Count 227 10^3/uL (130-400); Red Blood Cell Count 3.97 10^6/uL (4.70-6.10); Red Cell Dist. Width 14.6 % (11.5-14.5); White Blood Cell Count 10.2 10^3/uL (4.8-10.8)
[2023-08-20 07:27] LABS: ALT (SGPT) 18 U/L (0-50); AST (SGOT) 22 U/L (17-59); Albumin 3.5 g/dl (3.5-5.0); Alkaline Phosphatase 71 U/L (38-126); Blood Urea Nitrogen 46 mg/dl (9-20); Calcium 9.1 mg/dl (8.4-10.2); Carbon Dioxide 20 mmol/L (22-30); Chloride 112 mmol/L (98-107); Estimated Creatinine Clearance 36 ml/min; Glucose 104 mg/dl (70-99); Potassium 4.4 mmol/L (3.5-5.1); Sodium 139 mmol/L (135-145); Total Bilirubin 0.5 mg/dl (0.2-1.3); Total Protein 6.1 g/dl (6.3-8.2); eGFR 30.09
[2023-08-20] MEDS: DUONEB 3 ML INH ×4 (07:29→19:16)
[2023-08-20] MEDS: PROSCAR 5 MG PO (08:17)
[2023-08-20] MEDS: HYTRIN 10 MG PO (08:17)
[2023-08-20] MEDS: PROTONIX 40 MG PO (08:17)
[2023-08-20] MEDS: COREG 6.25 MG PO ×2 (08:17→20:49)
[2023-08-20] MEDS: NORVASC 10 MG PO (08:17)
[2023-08-20] MEDS: HEPARIN 5000 UNITS SC ×2 (08:19→17:43)
[2023-08-20] MEDS: KEPPRA 250 MG PO ×2 (08:19→20:49)
[2023-08-20] MEDS: LEXAPRO 10 MG PO (08:19)
[2023-08-20] MEDS: DESENEX/MITRAZOL/ZEASORB 1 APPLIC TOPICAL ×2 (08:20→20:51)
[2023-08-20] MEDS: TRUSOPT 2% OPHTHALMIC SOLUTION 1 DROP LEFT EYE (08:20)
--- NOTE | 2023-08-20 10:16 | CM ---
Addendum entered by Luis Fowler 08/20/23 10:57:
CM met with pt and pt's daughter Kristal at bedside. [phone].
Both pt and his daughter are aware that pt is medically stable to be discharge, expressed their agreement with going to [facility] for a short term rehab and they are aware of pending auth situation.
IMM reviewed, placed in chart, pt has a copy.
CM spoke to [facility] director of strategic initiatives and she confirmed that pt will be admitted today or tomorrow with an auth. Per Yaquelin if auth is available today, pt will be admitted today.
Original Note:
CM following re: discharge planning.
Reviewed pt's chart, met with pt.
According to MD pt is medically stable to be discharged today.
From CM note, pt is accepted by [facility] and ruiz auth is required.
MICHELLE initiated an auth from [employer], spoke to agency sales representative Janene, call ref# [id number], pending auth number is [id number]. Requested pt's clinical faxed to [phone].
Awaiting for an auth from [employer]
[facility] nursing report: [phone]
Discharge instructions fax: [phone]
D/C plan: [facility] when an auth is available
CM will follow to assist pt with discharge to [facility] when an autrh is obtained.
--- NOTE | 2023-08-20 11:30 | W.PN.HOSP.TC ---
Today's Communication/Plan
-
for SNF
Assessment / Plan
Assessment / Plan
Physical Exam
General: Well Developed, Well Nourished and No Apparent Distress
HEENT: NormoCephalic
Respiratory: Clear
Cardiac: S1/S2
GI: Soft and Non Tender
Musculoskeletal: No Clubbing
Skin: Warm and Other (Lower extremity edema, history of chronic bilateral leg lymphedema)
Neuro: Awake, Alert, Oriented and AO x 3
Hematologic/Lymphatic: Other (History of bilateral leg lymphedema)
Psych: Calm
IMPRESSION:
87-year-old male with past medical history hypertension, lymphedema presented for weakness. Found to have [place] after diarrheal illness.
A/P:
# [place] on ?CKD3
# Anion gap metabolic acidosis POA
OR[place]O suspect due to volume loss in setting of recent diarrheal illness
No evidence of hydro/obstruction on renal us
Status post IV fluids, stopped due to acute hypoxic resp failure due to volume overload
SCr today at 2.1 from 5.4 on admission
Urine Cx no growth
Echo: EF 71%, no other acute findings, normal thickness
Hold nephrotoxic agents
# Asymptomatic Bacteruria
# Acute hypoxic respiratory failure, resolved
suspect acute pulmonary edema due to IVF
Off IVF, improved resp status with positive pressure support, now off
Echo EF 71%, normal atrial thickness
No evidence of pneumonia at this time, discontinued antibiotics
Speech eval, VSE- no evidence of aspiration of foods but does need nectar thick fluids
cont CPAP and titration as needed outpatient
# Hyperkalemia, resolved
# Hyponatremia, resolved
# Hypertension
Continue Coreg
Hold on lisinopril/hydrochlorothiazide due to [place]
started amlodipine and increased to 10 mg
# BPH
Continue medications
# Hx of Seizures
Continue Keppra
DVT ppx: HSQ
DC ready, pillowcase cutter aware, pending placement
DW CM
DW daughter at bedside
Anticipated Discharge: Within 24 hours
Subjective/Interval History
-
Date of Service: August 20, 2023
Objective Data
-
Labs:
Laboratory Results
08/20/23
06:37
WBC 10.2
Hgb 11.8 L
Hct 36.6 L
Plt Count 227
Sodium 139
Potassium 4.4
Chloride 112 H
Carbon Dioxide 20 L
BUN 46 H
Creatinine 2.1 H
Glucose 104 H
Calcium 9.1
Total Bilirubin 0.5
AST 22
ALT 18
Alkaline Phosphatase 71
Vital Signs:
Vital Signs
Temp Pulse Resp BP Pulse Ox
36.7 C 64 20 140/70 94
08/20/23 11:18 08/20/23 11:18 08/20/23 11:18 08/20/23 11:18 08/20/23 11:18
I&O
08/19/23 08/20/23 08/21/23
06:59 06:59 06:59
Intake Total 600 / 600 1080 / 1080
Output Total 800 / 800 350 / 350
Balance -200 / -200 730 / 730
Review of Systems
-
All other systems: Reviewed and negative
Data Reviewed
-
Labs: Labs Reviewed by me
[2023-08-20] MEDS: TRUSOPT 2% OPHTHALMIC SOLUTION LEFT EYE (20:52)
[2023-08-20] MEDS: HEPARIN SC (23:24)
[2023-08-21 03:50] VITALS: BP 167/74
[2023-08-21 06:59] LABS: Blood Urea Nitrogen 47 mg/dl (9-20); Calcium 9.2 mg/dl (8.4-10.2); Carbon Dioxide 20 mmol/L (22-30); Chloride 109 mmol/L (98-107); Estimated Creatinine Clearance 35 ml/min; Glucose 104 mg/dl (70-99); Potassium 4.6 mmol/L (3.5-5.1); Sodium 138 mmol/L (135-145); eGFR 28.46
[2023-08-21 07:00] VITALS: BP 142/68
[2023-08-21] MEDS: DUONEB 3 ML INH ×3 (07:40→16:08)
[2023-08-21] MEDS: KEPPRA 250 MG PO (08:33)
[2023-08-21] MEDS: HYTRIN 10 MG PO (08:34)
[2023-08-21] MEDS: COREG 6.25 MG PO (08:34)
[2023-08-21] MEDS: PROSCAR 5 MG PO (08:35)
[2023-08-21] MEDS: PROTONIX 40 MG PO (08:35)
[2023-08-21] MEDS: DESENEX/MITRAZOL/ZEASORB 1 APPLIC TOPICAL (08:35)
[2023-08-21] MEDS: NORVASC 10 MG PO (08:35)
[2023-08-21] MEDS: HEPARIN 5000 UNITS SC (08:35)
[2023-08-21] MEDS: LEXAPRO 10 MG PO (08:35)
[2023-08-21] MEDS: TRUSOPT 2% OPHTHALMIC SOLUTION 1 DROP LEFT EYE (08:36)
--- NOTE | 2023-08-21 10:01 | W.PN.HOSP.TC ---
Addendum entered and electronically signed by Ursula Wu MD 08/21/23 14:16:
total DC time 35 min
Addendum entered and electronically signed by Ursula Wu MD 08/21/23 13:09:
lifted thickened liquid per SPL. He can cont regular with thin liquid
Original Note:
Today's Communication/Plan
-
dispo planning to SNF
Assessment / Plan
Assessment / Plan
Physical Exam
General: Well Developed, Well Nourished and No Apparent Distress
HEENT: NormoCephalic
Respiratory: Clear
Cardiac: S1/S2
GI: Soft and Non Tender
Musculoskeletal: No Clubbing
Skin: Warm and Other (Lower extremity edema, history of chronic bilateral leg lymphedema)
Neuro: Awake, Alert, Oriented and AO x 3
Hematologic/Lymphatic: Other (History of bilateral leg lymphedema)
Psych: Calm
IMPRESSION:
87-year-old male with past medical history hypertension, lymphedema presented for weakness. Found to have [place]O after diarrheal illness.
A/P:
# [place]O on ?CKD3
# Anion gap metabolic acidosis POA
[place] suspect due to volume loss in setting of recent diarrheal illness
No evidence of hydro/obstruction on renal US
Status post IV fluids, stopped due to acute hypoxic resp failure due to volume overload
SCr today at 2.2 from 5.4 on admission
Urine Cx no growth
Echo: EF 71%, no other acute findings, normal thickness
Hold nephrotoxic agents
# Asymptomatic Bacteruria
# Acute hypoxic respiratory failure, resolved
suspect acute pulmonary edema due to IVF
Off IVF
improved resp status with positive pressure support- now off
Echo EF 71%, normal atrial thickness
No evidence of pneumonia at this time, discontinued antibiotics
Speech eval, VSE- no evidence of aspiration of foods but does need nectar thick fluids
cont CPAP and titration as needed outpatient
# Hyperkalemia, resolved
# Hyponatremia, resolved
# Hypertension
Continue Coreg
Hold on lisinopril/hydrochlorothiazide due to [place]
started amlodipine and increased to 10 mg
# BPH
Continue medications
# Hx of Seizures
Continue Keppra
DVT ppx: HSQ
DC ready, skilled nursing case manager aware, pending placement
Anticipated Discharge: Today
Subjective/Interval History
-
Date of Service: August 21, 2023
Objective Data
-
Labs:
Laboratory Results
08/21/23
06:15
Sodium 138
Potassium 4.6
Chloride 109 H
Carbon Dioxide 20 L
BUN 47 H
Creatinine 2.2 H
Glucose 104 H
Calcium 9.2
Vital Signs:
Vital Signs
Temp Pulse Resp BP Pulse Ox
36.7 C 81 16 142/68 94
08/21/23 07:00 08/21/23 07:42 08/21/23 07:42 08/21/23 07:00 08/21/23 07:42
I&O
08/20/23 08/21/23 08/22/23
06:59 06:59 06:59
Intake Total 1080 / 1080 780 / 780
Output Total 350 / 350 250 / 250
Balance 730 / 730 530 / 530
Review of Systems
-
All other systems: Reviewed and negative
Data Reviewed
-
Labs: Labs Reviewed by me
[2023-08-21 11:00] VITALS: BP 115/62
--- NOTE | 2023-08-21 13:15 | PTOTSP ---
SPEECH THERAPY SWALLOW THERAPY FOLLOW UP:
Patient exhibits oropharyngeal swallow grossly WFL at this time. Last CXR 08/15 revealed improved aeration of lungs; WBC WNL. Patient able to implement safe swallow strategies independently. Patient appears appropriate for liquid upgrade to Thin
liquids at this time. Continue Regular textures. Patient remains at risk for aspiration given weakness and results of VFSS. Recommend Aspiration precautions as listed below. Speech therapy to follow. Patient would benefit from continued monitoring
by services upon discharge to assess diet tolerance. Discussed with Dr. Wu.
RECOMMEND:
1) Continue Regular texture diet, upgrade to thin liquids
2) Meds whole in puree
3) Aspiration precautions: Small single sips. No straw. Small bites. Slow rate. Upright positioning. Remain upright 30 minutes after eating/drinking. Discontinue eating/drinking if signs of aspiration. Monitor CXR and labs/temperature. Discontinue
oral diet if decline in respiratory status.
4) ST to continue to follow
--- NOTE | 2023-08-21 14:02 | W.DCSUMMARY ---
Discharge Summary
Discharge Data
Date of Admission: 08/14/23
Date of Discharge: 08/21/23
-
Pending Results: No
Hospital Course
Principal Diagnosis:
Acute kidney injury ([place]) on likely chronic kidney disease (CKD) stage III
Anion gap metabolic acidosis on admission, resolved
Acute hypoxic respiratory failure likely due to acute pulmonary edema from aggressive IVF resuscitation, hypoxia resolved
Chronic Diagnoses:�
Hypertension
Benign prostate hypertrophy
History of seizures
Consultations:�
None
Procedures:�
None
Clinical course:�
This is a 87-year-old male with past medical history as stated above, who presented with severe weakness due to diarrheal illness. He was also found to have [place].
Problem 1:
OR[place]O on likely CKD stage 3.
This was associated with anion gap metabolic acidosis on admission, which has resolved.
His [place] was also associated with hyperkalemia and hyponatremia, both electrolytes have normalized subsequently.
His [place]O was felt likely due to volume labs in setting of recent diarrheal disease.
There was no evidence of hydro/obstruction on renal US.
He received IV fluid resuscitation which was stopped due to acute hypoxic respiratory failure from fluid overload (see below).
His serum creatinine down trended from 5.4 on admission to 2.2 on the day of discharge.
His Urine culture showed no growth
Problem 2:
Acute hypoxic respiratory failure likely due to acute pulmonary edema from aggressive IVF resuscitation.
At one point he was placed on positive pressure support, which was subsequently weaned off.
His hypoxia resolved and he was weaned back to room air with good saturation.
An echocardiogram was obtained, which noted EF at 71%, normal atrial thickness, no other acute findings.
Problem 3:
Hypertension.
His prior to admission lisinopril and hydrochlorothiazide were discontinued due to [place].
In place of these medications, Norvasc was added. He was discharged with Norvasc at 10 mg to take going forward.
He can continue with his prior to admission Coreg at 6.25 mg twice daily.
As for the rest of his medical problems, they were stable during his hospital stay.
Discharge Plan
-
Patient Disposition: [facility]ci/SNF
Discharge Diagnosis/Procedures: Acute kidney injury ([place]) on likely chronic kidney disease stage 3; metabolic acidosis on admission (resolved) due to [place]; [place]O suspect due to volume loss in setting of recent diarrheal illness
Condition: Fair
Diet: As tolerated
Activity: As tolerated
Driving Restrictions: Not until seen by your Dr
Referrals:
Amada Chaidez MD [Family Provider] - in less than 1 week
Additional Discharge Medication Instructions: stop lisinopril/hydrochlorothiazide due to [place]
Take amlodipine instead for BP control
Prescriptions:
New
amlodipine 10 mg Tablet
10 mg PO DAILY Qty: 30 0RF
Continued
acetaminophen [Tylenol] 325 mg Tablet
650 mg PO Q4HPRN PRN (Reason: mild pain)
carvedilol [Coreg] 6.25 mg Tablet
6.25 mg PO BID
levetiracetam [Keppra] 250 mg Tablet
250 mg PO BID
pantoprazole [Protonix] 40 mg Tablet,Delayed Release (Dr/Ec)
40 mg PO DAILY
terazosin 10 mg Capsule
10 mg PO DAILY
finasteride 5 mg Tablet
5 mg PO DAILY
escitalopram oxalate [Lexapro] 10 mg Tablet
10 mg PO DAILY
eszopiclone [Lunesta] 2 mg Tablet
2 mg PO HS
dorzolamide 2 % drops
1 drp LEFT EYE BID
Discontinued
lisinopril-hydrochlorothiazide 20-12.5 mg Tablet
1 tab PO DAILY
Discharge Orders:
Discharge Patient (As Directed); Ordered 08/21/23
Ordered By: Ursula Wu
Discharge Date and Time
Print Language: SENEGALESE
--- NOTE | 2023-08-21 14:04 | CM ---
spoke with debi lopez at [facility].auth # [id number] for 7 days,NRD 08/28/23.spoke with damián at [facility].she has a bed available for [facility] today.phone number to call report is [phone] and fax number is [phone].
plan:snf today at [facility].
[2023-08-21 15:00] VITALS: BP 141/61
[2023-08-21] MEDS: HEPARIN SC (18:22)
== END 2023-08-21 19:13 | DRG 682 ==
LOC: 3 WEST ACU 14:32
PROVIDERS: ADMITTING PHYSICIAN Internal Medicine; ATTENDING PHYSICIAN Internal Medicine; EMERGENCY PHYSICIAN Student in an Organized Health Care Education/Training Program; FAMILY PHYSICIAN Family Medicine
PROC: 5A09357 Assistance with Respiratory Ventilation, Less than 24 Consecutive Hours, Continuous Positive Airway Pressure (ICD-10-PCS; 2023-08-15)
DX: N17.9 Acute kidney failure, unspecified (principal); J81.0 Acute pulmonary edema; J96.01 Acute respiratory failure with hypoxia; E66.2 Morbid (severe) obesity with alveolar hypoventilation; E87.1 Hypo-osmolality and hyponatremia; E87.20 Acidosis, unspecified; N18.30 Chronic kidney disease, stage 3 unspecified; I12.9 Hypertensive chronic kidney disease with stage 1 through stage 4 chronic kidney disease, or unspecified chronic kidney disease; N40.0 Benign prostatic hyperplasia without lower urinary tract symptoms; R56.9 Unspecified convulsions; I89.0 Lymphedema, not elsewhere classified; R82.71 Bacteriuria; E86.1 Hypovolemia; E87.70 Fluid overload, unspecified; E86.0 Dehydration; E87.5 Hyperkalemia; Z68.37 Body mass index [BMI] 37.0-37.9, adult
CPT/HCPCS: 71045; 71046; 74230; 76770; 80048; 80053; 81003; 81015; 83735; 84145; 84484; 85025; 85027; 87086; 92526; 92610; 92611; 93005; 93306; 93970; 94640; 94660; 96360; 97163; 97166; 97530; 97535; 99284

== ENCOUNTER → 2023-08-23 10:21 | Outpatient (REF) | payer OTHER, SELFPAY ==
[2023-08-23 11:22] LABS: % Basophils 0.6 % (0-2); % Eosinophils 4.3 % (0-6); % Immature Granulocytes 0.4 % (0-0.5); % Lymphocytes 22.1 % (20.5-51.1); % Monocytes 8.5 % (1.7-9.3); % Neutrophils 64.1 % (42.2-75.2); Absolute Basophils 0.1 10^3/uL (0-0.2); Absolute Eosinophils 0.5 10^3/uL (0-0.7); Absolute Lymphocytes 2.5 10^3/uL (1.2-3.4); Absolute Monocytes 0.9 10^3/uL (0.1-0.6); Absolute Neutrophils 7.1 10^3/uL (1.4-6.5); Hematocrit 36.6 % (39.0-52.0); Hemoglobin 11.6 g/dL (13.0-18.0); Mean Corp Hgb Conc. 31.7 g/dL (33.0-37.0); Mean Corpuscular Hgb 29.4 pg (27.0-31.0); Mean Corpuscular Volume 92.9 fL (80.0-94.0); Mean Platelet Volume 11.2 fL (7.4-10.4); Nucleated Red Blood Cells % 0 % (-); Platelet Count 213 10^3/uL (130-400); Red Blood Cell Count 3.94 10^6/uL (4.70-6.10); Red Cell Dist. Width 14.6 % (11.5-14.5); White Blood Cell Count 11.1 10^3/uL (4.8-10.8)
[2023-08-23 11:28] LABS: Blood Urea Nitrogen 43 mg/dl (9-20); Calcium 9.3 mg/dl (8.4-10.2); Carbon Dioxide 25 mmol/L (22-30); Chloride 106 mmol/L (98-107); Glucose 98 mg/dl (70-99); Potassium 4.6 mmol/L (3.5-5.1); Sodium 138 mmol/L (135-145); eGFR 30.09
== END ==
LOC: OLABP 10:21
PROVIDERS: ATTENDING PHYSICIAN Family Medicine
DX: R82.71 Bacteriuria (principal); N17.9 Acute kidney failure, unspecified; I10 Essential (primary) hypertension; E87.5 Hyperkalemia; E87.1 Hypo-osmolality and hyponatremia; N18.30 Chronic kidney disease, stage 3 unspecified; I89.0 Lymphedema, not elsewhere classified
CPT/HCPCS: 36415; 80048; 85025

== ENCOUNTER → 2023-08-27 11:07 | Outpatient (REF) | payer OTHER, SELFPAY ==
[2023-08-27 12:08] LABS: % Basophils 0.8 % (0-2); % Eosinophils 9.6 % (0-6); % Immature Granulocytes 0.1 % (0-0.5); % Lymphocytes 25.8 % (20.5-51.1); % Neutrophils 52.7 % (42.2-75.2); Absolute Basophils 0.1 10^3/uL (0-0.2); Absolute Eosinophils 0.7 10^3/uL (0-0.7); Absolute Lymphocytes 1.9 10^3/uL (1.2-3.4); Absolute Monocytes 0.8 10^3/uL (0.1-0.6); Absolute Neutrophils 3.8 10^3/uL (1.4-6.5); Hematocrit 33.8 % (39.0-52.0); Hemoglobin 10.8 g/dL (13.0-18.0); Mean Corpuscular Hgb 29.3 pg (27.0-31.0); Mean Corpuscular Volume 91.8 fL (80.0-94.0); Nucleated Red Blood Cells % 0 % (-); Platelet Count 233 10^3/uL (130-400); Red Blood Cell Count 3.68 10^6/uL (4.70-6.10); Red Cell Dist. Width 14.5 % (11.5-14.5); White Blood Cell Count 7.3 10^3/uL (4.8-10.8)
[2023-08-27 12:20] LABS: Blood Urea Nitrogen 37 mg/dl (9-20); Carbon Dioxide 22 mmol/L (22-30); Chloride 106 mmol/L (98-107); Glucose 91 mg/dl (70-99); Potassium 4.4 mmol/L (3.5-5.1); Sodium 137 mmol/L (135-145)
== END ==
LOC: OLABP 11:07
PROVIDERS: ATTENDING PHYSICIAN Family Medicine
DX: I10 Essential (primary) hypertension (principal); R82.71 Bacteriuria; N17.9 Acute kidney failure, unspecified; E87.1 Hypo-osmolality and hyponatremia; N18.30 Chronic kidney disease, stage 3 unspecified; I89.0 Lymphedema, not elsewhere classified
CPT/HCPCS: 36415; 80048; 85025

== ENCOUNTER → 2023-09-02 09:11 | Outpatient (REF) | payer OTHER, SELFPAY ==
[2023-09-02 09:44] LABS: % Basophils 0.8 % (0-2); % Eosinophils 9.1 % (0-6); % Immature Granulocytes 0.2 % (0-0.5); % Lymphocytes 33.6 % (20.5-51.1); % Monocytes 11.4 % (1.7-9.3); % Neutrophils 44.9 % (42.2-75.2); Absolute Basophils 0.1 10^3/uL (0-0.2); Absolute Eosinophils 0.6 10^3/uL (0-0.7); Absolute Lymphocytes 2.2 10^3/uL (1.2-3.4); Absolute Monocytes 0.7 10^3/uL (0.1-0.6); Absolute Neutrophils 2.9 10^3/uL (1.4-6.5); Hematocrit 34.6 % (39.0-52.0); Mean Corp Hgb Conc. 31.8 g/dL (33.0-37.0); Mean Corpuscular Hgb 29.3 pg (27.0-31.0); Mean Corpuscular Volume 92.3 fL (80.0-94.0); Mean Platelet Volume 10.7 fL (7.4-10.4); Nucleated Red Blood Cells % 0 % (-); Platelet Count 238 10^3/uL (130-400); Red Blood Cell Count 3.75 10^6/uL (4.70-6.10); Red Cell Dist. Width 14.6 % (11.5-14.5); White Blood Cell Count 6.5 10^3/uL (4.8-10.8)
[2023-09-02 09:52] LABS: Blood Urea Nitrogen 23 mg/dl (9-20); Calcium 9.2 mg/dl (8.4-10.2); Carbon Dioxide 23 mmol/L (22-30); Chloride 106 mmol/L (98-107); Glucose 94 mg/dl (70-99); Sodium 139 mmol/L (135-145)
== END ==
LOC: OLABP 09:11
PROVIDERS: ATTENDING PHYSICIAN Family Medicine
DX: R82.71 Bacteriuria (principal); N17.9 Acute kidney failure, unspecified; M62.81 Muscle weakness (generalized); I10 Essential (primary) hypertension; E87.5 Hyperkalemia; E87.1 Hypo-osmolality and hyponatremia; N18.30 Chronic kidney disease, stage 3 unspecified; I89.0 Lymphedema, not elsewhere classified
CPT/HCPCS: 36415; 80048; 85025